=== PATIENT | male | born 1955 | race Two or more races ===

== ENCOUNTER 2024-04-12 10:59 | Outpatient (CLI) | payer OTHER | END 2024-04-12 11:11 | disposition home or self-care (01) | LOC: RAD 10:59 | PROVIDERS: ATTEND Internal Medicine | DX: R05.3 Chronic cough (principal) ==

== ENCOUNTER 2024-06-15 08:41 | Outpatient (CLI) | payer OTHER | END 2024-06-15 08:55 | disposition home or self-care (01) | LOC: TOM 08:41 | PROVIDERS: ATTEND Internal Medicine Pulmonary Disease | DX: R06.02 Shortness of breath (principal); R05.3 Chronic cough ==

== ENCOUNTER 2025-01-10 09:30 | Outpatient (CLI) | payer OTHER | END 2025-01-10 09:43 | disposition home or self-care (01) | LOC: TOM 09:30 | DX: R06.00 Dyspnea, unspecified (principal); R91.1 Solitary pulmonary nodule ==

== ENCOUNTER 2025-01-15 19:39 | Emergency (ER) | payer OTHER ==
[~2025-01-15] VITALS: Ht 165.1 cm; Wt 78.9 kg
[2025-01-15] MEDS ORDERED: FAMOTIDINE/PF 20 MG/2 ML VIAL IV PUSH ONE (20:45)
[2025-01-15] MEDS ORDERED: HYOSCYAMINE SULFATE 0.125 MG TAB.SUBL SL ONE (20:45)
[2025-01-15] MEDS ORDERED: 0.9 % SODIUM CHLORIDE 1,000 ML IV SCH (20:45)
[2025-01-15] MEDS ORDERED: FAMOTIDINE/PF 20 MG/2 ML VIAL ONE (20:53)
[2025-01-15] MEDS ORDERED: HYOSCYAMINE SULFATE 0.125 MG TAB.SUBL ONE (20:53)
[2025-01-15 21:44] LABS: HEMATOCRIT 43.1 % (39.0-48.0); HEMOGLOBIN 14.7 g/dL (13-16.00); MEAN CELL VOLUME 95.6 fL (80.0-100.00); MEAN CORPUSCULAR HEMOGLOBIN 32.6 pg (27.00-32.0); MEAN CORPUSCULAR HGB CONC 34.1 g/dl (32.0-36.0); PLATELET COUNT 253 K/uL (150-450); RED BLOOD COUNT 4.51 M/uL (4.00-6.00); RED CELL DISTRIBUTION WIDTH 12.8 % (11.5-14.5)
[2025-01-15 22:04] LABS: CALCIUM 9.3 mg/dL (8.5-10.1); CREATININE SERUM 1.58 mg/dL (0.70-1.30); GFR 43.96
[2025-01-15 22:39] LABS: PH,URINE 7.5 (5.0-8.0); URINE APPEARANCE Clear; URINE BILIRRUBIN Negative (NEGATIVE); URINE BLOOD Negative; URINE COLOR Yellow; URINE GLUCOSE Negative (NEGATIVE); URINE LEUKOCYTE Negative; URINE NITRATE Negative; URINE PROTEIN Negative (NEGATIVE); URINE UROBILINOGEN 0.2 E.U./dl
[2025-01-15 22:43] LABS: URINE BACTERIA 4.8 uL (0.0-1933)
[2025-01-15 22:49] LABS: URINE EPITHELIAL CELLS 0.9 uL (0.0-38.8); URINE KETONE 40 (NEGATIVE); URINE RBC 0.4 uL (0.0-20.8); URINE WBC 1.7 uL (0.0-23.2)
== END 2025-01-16 00:13 | disposition home or self-care (01) ==
LOC: ER 19:39
PROVIDERS: Emergency Medicine
DX: A05.9 Bacterial foodborne intoxication, unspecified (principal)
CPT/HCPCS: 36415; 96365; 96366; 99282; J3490; J7030